=== PATIENT | female | born 1990 | race Caucasian/White ===

== ENCOUNTER 2016-11-04 15:09 | Emergency (ER) | payer SELFPAY ==
[2016-11-04 15:15] VITALS: BP 138/86
--- NOTE | 2016-11-04 15:20 | ER Document Report ---
ED Medical Screen (RME) - General Stated Complaint: SHORTNESS OF BREATH Notes: Patient complains of shortness of breath for a couple of days. Patient has a history of asthma, but denies cough or cold symptoms. Patient complains of intermittent swelling to feet, also complains of feeling bloated. Patient denies fever, nausea, vomiting or diarrhea. Patient denies any other medical history. I have greeted and performed a rapid initial assessment of this patient. A comprehensive ED assessment and evaluation of the patient, analysis of test results and completion of the medical decision making process will be conducted by additional ED providers. TRAVEL OUTSIDE OF THE [place] IN LAST 30 DAYS: No - Related Data Allergies/Adverse Reactions: Penicillins Allergy (Verified 11/04/16 15:16) unknown Past Medical History Pulmonary Medical History: Reports: Hx Asthma - as a child Past Surgical History: Reports: Hx Tonsillectomy - Immunizations Immunizations up to date: Yes Hx Diphtheria, Pertussis, Tetanus Vaccination: Yes Physical Exam - Vital signs Vitals: Temp Pulse Resp BP Pulse Ox 98.5 F 97 16 138/86 H 97 11/04/16 15:15 11/04/16 15:15 11/04/16 15:15 11/04/16 15:15 11/04/16 15:15 - Respiratory Respiratory status: No respiratory distress Breath sounds: Normal Course - Vital Signs Vital signs: Temp Pulse Resp BP Pulse Ox 98.5 F 97 16 138/86 H 97 11/04/16 15:15 11/04/16 15:15 11/04/16 15:15 11/04/16 15:15 11/04/16 15:15
--- NOTE | 2016-11-04 17:01 | ER Document Report ---
ED General - General Chief Complaint: Shortness Of Breath Stated Complaint: SHORTNESS OF BREATH TRAVEL OUTSIDE OF THE [place] IN LAST 30 DAYS: No - HPI Patient complains to provider of: shortness of breath leg swelling Notes: Patient coming in for evaluation shortness of breath and leg swelling. Patient denies any recent travel denies any chest pain states dyspnea occurred day prior to arrival states she has been over 10 pounds over the last week. Patient states she is on her feet a lot during the day. Patient denies any fevers chills nausea vomiting cough - Related Data Allergies/Adverse Reactions: Penicillins Allergy (Verified 11/04/16 15:16) unknown Past Medical History - Social History Smoking Status: Current Every Day Smoker Chew tobacco use (# tins/day): No Frequency of alcohol use: None Drug Abuse: None Family History: Arthritis, CAD, DM, Hyperlipidemia, Hypertension, Malignancy Patient has suicidal ideation: No Patient has homicidal ideation: No Pulmonary Medical History: Reports: Hx Asthma - as a child Renal/ Medical History: Denies: Hx Peritoneal Dialysis Past Surgical History: Reports: Hx Tonsillectomy - Immunizations Immunizations up to date: Yes Hx Diphtheria, Pertussis, Tetanus Vaccination: Yes Review of Systems - Review of Systems Constitutional: No symptoms reported EENT: No symptoms reported Cardiovascular: No symptoms reported Respiratory: Cough, Short of breath Gastrointestinal: No symptoms reported Genitourinary: No symptoms reported Female Genitourinary: No symptoms reported Musculoskeletal: No symptoms reported Skin: No symptoms reported Hematologic/Lymphatic: No symptoms reported Neurological/Psychological: No symptoms reported -: Yes All other systems reviewed and negative Physical Exam - Vital signs Vitals: Temp Pulse Resp BP Pulse Ox 98.5 F 97 16 138/86 H 97 11/04/16 15:15 11/04/16 15:15 11/04/16 15:15 11/04/16 15:15 11/04/16 15:15 Interpretation: Normal - General General appearance: Appears well, Alert - HEENT Head: Normocephalic, Atraumatic Eyes: Normal Pupils: PERRL - Respiratory Respiratory status: No respiratory distress Chest status: Nontender Breath sounds: Normal Chest palpation: Normal - Cardiovascular Rhythm: Regular Heart sounds: Normal auscultation Murmur: No - Abdominal Inspection: Normal, Obese Distension: No distension Bowel sounds: Normal Tenderness: Nontender Organomegaly: No organomegaly - Back Back: Normal, Nontender - Extremities General upper extremity: Normal inspection, Nontender, Normal color, Normal ROM , Normal temperature General lower extremity: Normal inspection, Nontender, Edema - Trace bilateral, Normal color, Normal ROM, Normal temperature, Normal weight bearing. No: Germania' s sign - Neurological Neuro grossly intact: Yes Cognition: Normal Orientation: AAOx4 [place] Coma Scale Eye Opening: Spontaneous [place] Coma Scale Verbal: Oriented [place] Coma Scale Motor: Obeys Commands [place] Coma Scale Total: 15 Speech: Normal Motor strength normal: LUE, RUE, LLE, RLE Sensory: Normal - Psychological Associated symptoms: Normal affect, Normal mood - Skin Skin Temperature: Warm Skin Moisture: Dry Skin Color: Normal Course - Re-evaluation Re-evalutation: 11/04/16 18:06 Chest x-ray and physical examination revealed no critical etiology. Patient with trace edema in bilateral lower extremities more likely from stiffening of all day will give the patient a information for support hoses. Patient was encouraged follow-up with her condition medical clinic more likely patient's dyspnea is could be pickwickian however this time is no signs of any infection or other serious etiology - Vital Signs Vital signs: Temp Pulse Resp BP Pulse Ox 98.5 F 97 16 138/86 H 97 11/04/16 15:15 11/04/16 15:15 11/04/16 15:15 11/04/16 15:15 11/04/16 15:15 Discharge - Discharge Clinical Impression: Peripheral edema Dyspnea Qualifiers: Dyspnea type: unspecified Qualified Code(s): R06.00 - Dyspnea, unspecified Condition: Good Disposition: HOME, SELF-CARE Instructions: Dyspnea, Nonspecific ([facility]), Edema, Peripheral ([facility]) Additional Instructions: Your physical exam today does reveal some slight swelling of the lower extremities. More likely this is from ordered being pulled down into the legs while standing on all day. I will prescribe you tightfitting stockings that will help post water back up out of the legs. You may also elevate her legs at nighttime. I would recommend also following up with the listed clinic for further evaluation a recent weight gain. More likely this is also why you're having some shortness of breath. Please avoid smoking any by the does smoke. Return to ER symptoms worsen. Prescriptions: Compression Socks, Medium [Futuro Restoring] 1 each [facility] DAILY #1 each Forms: Return to Work
== END 2016-11-04 17:32 | disposition home or self-care (01) ==
LOC: ER 15:09
DX: R06.02 Shortness of breath (principal); R60.0 Localized edema; R05 Cough; F17.200 Nicotine dependence, unspecified, uncomplicated
CPT/HCPCS: 71020; 99284

== ENCOUNTER 2016-11-18 22:18 | Emergency (ER) | payer SELFPAY ==
[2016-11-18] MEDS ORDERED: ACETAMINOPHEN 325 MG TABLET PO ONE (22:48)
[2016-11-18] MEDS ORDERED: ACETAMINOPHEN 325 MG TABLET ONE (22:49)
[2016-11-18] MEDS ORDERED: NORMAL SALINE 1000 ML 1,000 ML IV ONE (23:36)
[2016-11-18] MEDS ORDERED: KETOROLAC TROMETHAMINE INJ/PF 30 MG/1 ML SDV IV ONE (23:36)
--- NOTE | 2016-11-19 00:31 | ER Document Report ---
ED General - General Chief Complaint: Fever Stated Complaint: HIGH FEVER/DIFFICULTY BREATHING Notes: Patient is a 26-year-old female with past history of morbid obesity but no additional medical history who presents with fever, cough, shortness of breath that has been ongoing for the past 1 week. States symptoms have been unchanged since onset. Uncertain if she has had any sick contacts. She has not had any vomiting or diarrhea but states that she has not had an appetite. She was seen in the emergency department 2 weeks ago for complaints of shortness of breath and had a normal chest x-ray at that time. She has not seen in her primary care doctor for these concerns. Nothing improves or worsens her symptoms. TRAVEL OUTSIDE OF THE [place] IN LAST 30 DAYS: No - Related Data Allergies/Adverse Reactions: Penicillins Allergy (Verified 11/04/16 15:16) unknown Past Medical History - General Information source: Patient - Social History Smoking Status: Never Smoker Frequency of alcohol use: None Drug Abuse: None Lives with: Family Family History: Arthritis, CAD, DM, Hyperlipidemia, Hypertension, Malignancy Patient has suicidal ideation: No Patient has homicidal ideation: No Pulmonary Medical History: Reports: Hx Asthma - as a child Renal/ Medical History: Denies: Hx Peritoneal Dialysis Past Surgical History: Reports: Hx Tonsillectomy - Immunizations Immunizations up to date: Yes Hx Diphtheria, Pertussis, Tetanus Vaccination: Yes Review of Systems - Review of Systems Notes: Constitutional: Positive for fever. HENT: Negative for sore throat. Eyes: Negative for visual changes. Cardiovascular: Negative for chest pain. Respiratory: Positive for shortness of breath and cough Gastrointestinal: Negative for abdominal pain, vomiting or diarrhea. Genitourinary: Negative for dysuria. Musculoskeletal: Negative for back pain. Skin: Negative for rash. Neurological: Negative for headaches, weakness or numbness. 10 point ROS negative except as marked above and in HPI. Physical Exam - Vital signs Vitals: Temp Pulse Resp BP Pulse Ox 103.1 F H 111 H 24 H 138/83 H 96 11/18/16 22:44 11/18/16 22:44 11/18/16 22:44 11/18/16 22:44 11/18/16 22:44 Interpretation: Tachycardic, Tachypneic, Febrile Notes: PHYSICAL EXAMINATION: GENERAL: Morbidly obese female. Well-appearing, well-nourished and in no acute distress. HEAD: Atraumatic, normocephalic. EYES: Pupils equal round and reactive to light, extraocular movements intact, sclera anicteric, conjunctiva are normal. ENT: nares patent, oropharynx clear without exudates. Dry mucous membranes. NECK: Normal range of motion, supple without lymphadenopathy LUNGS: Lung exam limited secondary to morbid obesity. Breath sounds clear to auscultation bilaterally and equal. No wheezes rales or rhonchi. HEART: Regular tachycardia without murmurs ABDOMEN: Morbidly obese abdomen. Soft, nontender, normoactive bowel sounds. No guarding, no rebound. No masses appreciated. EXTREMITIES: Normal range of motion, no pitting or edema. No cyanosis. NEUROLOGICAL: No focal neurological deficits. Moves all extremities spontaneously and on command. PSYCH: Normal mood, normal affect. SKIN: Warm, Dry, normal turgor, no rashes or lesions noted. Course - Re-evaluation Re-evalutation: 11/19/16 00:25 Patient presents with ongoing fever, cough and shortness of breath. Patient is morbidly obese 376 pounds with a BMI of 62 and a suspect large component of her difficulty breathing is secondary to her morbid obesity with superimposed likely upper respiratory infection versus influenza. Repeat chest x-ray today again does not demonstrate any acute infiltrate an overall have a low clinical suspicion for an acute pneumonia. Exam is overall unremarkable with the exception of mild tachycardia. Will obtain basic metabolic panel as patient states she has had difficulty tolerating significant by mouth intake to ensure that she has not developed acute kidney injury. Will also obtain flu testing. 11/19/16 01:46 Laboratories unremarkable as is influenza testing. Chest x-ray remains unremarkable. However, given patient's fever at time of arrival will clinically treat as a possible community-acquired pneumonia and start her on levofloxacin. Vitals have normalized. At this time will discharge with return precautions and follow-up recommendations. Verbal discharge instructions given a the bedside and opportunity for questions given. Medication warnings reviewed. Patient is in agreement with this plan and has verbalized understanding of return precautions and the need for primary care follow-up in the next 24-72 hours. - Vital Signs Vital signs: Temp Pulse Resp BP Pulse Ox 98.5 F 106 H 24 H 115/69 97 11/19/16 02:15 11/19/16 02:15 11/18/16 22:44 11/19/16 02:15 11/19/16 02:15 - Laboratory Result Diagrams: 11/19/16 00:45 Laboratory results interpreted by me: 11/19/16 00:45 Glucose 111 H - Diagnostic Test Radiology reviewed: Image reviewed, Reports reviewed Radiology results interpreted by me: 11/19/16 00:26 Chest x-ray: No acute infiltrate Discharge - Discharge Clinical Impression: Community acquired pneumonia Condition: Good Disposition: HOME, SELF-CARE Additional Instructions: You have been diagnosed with a pneumonia. It is very important that you take all of your antibiotics until they are gone even if you are feeling better. Please return to the emergency department immediately if you began having worsening shortness of breath, become confused, have worsening pain, pass out, have persistent vomiting that prevents you from being able to drink fluids for more than 12 hours, or have any other symptoms that are worrisome to you. Please follow-up with your primary care doctor in the next 1-2 days. Prescriptions: Doxycycline Hyclate 100 mg PO BID #14 capsule
[2016-11-19 01:22] LABS: ANION GAP 12 (5-19); BLOOD UREA NITROGEN 15 mg/dL (7-20); CALCIUM 9.3 mg/dL (8.4-10.2); CARBON DIOXIDE 25 mmol/L (22-30); CHLORIDE 104 mmol/L (98-107); GLUCOSE 111 mg/dL (75-110)
[2016-11-19 02:19] VITALS: BP 115/69
[2016-11-19] MEDS ORDERED: DOXYCYCLINE HYCLATE 100 MG TABLET PO ONE (02:45)
== END 2016-11-19 03:04 | disposition home or self-care (01) ==
LOC: ER 22:18
DX: J18.9 Pneumonia, unspecified organism (principal); R50.9 Fever, unspecified; R06.00 Dyspnea, unspecified; E66.01 Morbid (severe) obesity due to excess calories; Z68.44 Body mass index [BMI] 60.0-69.9, adult; Z88.0 Allergy status to penicillin
CPT/HCPCS: 99284; 96361; 96374; 36415; 80048; 87804; 71010; J1885; J7030

== ENCOUNTER 2016-12-21 08:09 | Emergency (ER) | payer SELFPAY ==
[2016-12-21] MEDS ORDERED: HYDROMORPHONE HCL INJ/PF 2 MG/ML AMPULE ONE ×2 (11:16→11:17)
[2016-12-21] MEDS ORDERED: ONDANSETRON 4 MG TAB.RAPDIS ONE ×2 (11:16)
[2016-12-21] MEDS ORDERED: KETOROLAC TROMETHAMINE INJ/PF 30 MG/1 ML SDV ONE ×2 (11:16→11:17)
[2016-12-22 10:14] LABS: ABSOLUTE EOSINOPHILS # (AUTO) 0.2 10^3/uL (0.0-0.6); ABSOLUTE LYMPHOCYTES (AUTO) 2.2 10^3/uL (0.5-4.7); ABSOLUTE MONOCYTES (AUTO) 0.6 10^3/uL (0.1-1.4); ABSOLUTE NEUT (AUTO) 9.8 10^3/uL (1.7-8.2); BASOPHILS % (AUTO) 0.4 % (0-2); EOSINOPHILS % (AUTO) 1.7 % (0-6); HEMATOCRIT 43.8 % (36.0-47.0); HEMOGLOBIN 14.3 g/dL (12.0-15.5); HGB HCT DIFFERENCE -0.9; LYMPHOCYTES % (AUTO) 17.2 % (13-45); MEAN CORPUSCULAR HEMOGLOBIN 27.6 pg (27.0-33.4); MEAN CORPUSCULAR HGB CONC 32.6 g/dL (32.0-36.0); MEAN CORPUSCULAR VOLUME 85 fl (80-97); MONOCYTES % (AUTO) 4.9 % (3-13); RED BLOOD COUNT 5.17 10^6/uL (3.72-5.28); RED CELL DISTRIBUTION WIDTH 13.1 % (11.5-14.0); SEGMENTED NEUTROPHILS % (AUTO) 75.8 % (42-78); WHITE BLOOD COUNT 12.9 10^3/uL (4.0-10.5)
[2016-12-22 17:54] LABS: BLOOD UREA NITROGEN 18 mg/dL (7-20); CALCIUM 9.5 mg/dL (8.4-10.2); CREATININE RESULT 0.66 mg/dL (0.52-1.25); GLUCOSE 107 mg/dL (75-110)
[2016-12-22 17:55] LABS: ALANINE AMINOTRANSFERASE 30 U/L (9-52); ALBUMIN 4.2 g/dL (3.5-5.0); ALKALINE PHOSPHATASE 81 U/L (38-126); ANION GAP 12 (5-19); ASPARTATE AMINO TRANSFERASE 25 U/L (14-36); BILIRUBIN,TOTAL 0.8 mg/dL (0.2-1.3); CARBON DIOXIDE 26 mmol/L (22-30); CHLORIDE 105 mmol/L (98-107); POTASSIUM 4.1 mmol/L (3.6-5.0); SODIUM 143.2 mmol/L (137-145)
[2016-12-22 17:56] LABS: BILIRUBIN,DIRECT 0.3 mg/dL (0.0-0.4)
[2016-12-22 17:57] LABS: LIPASE 93.8 U/L (23-300); TOTAL PROTEIN 7.7 g/dL (6.3-8.2)
== END 2016-12-21 13:25 | disposition home or self-care (01) ==
LOC: ER 08:09
DX: K80.80 Other cholelithiasis without obstruction (principal); R10.13 Epigastric pain; R10.11 Right upper quadrant pain; R11.0 Nausea
CPT/HCPCS: 99284; 96372; 36415; 84702; 83690; 85025; 80053; 76705; S0119; J1885; J1170

== ENCOUNTER 2017-03-03 16:07 | Emergency (ER) | payer SELFPAY ==
[2017-03-03 16:11] VITALS: BP 152/77
--- NOTE | 2017-03-03 17:00 | ER Document Report ---
HPI - HPI Patient complains to provider of: right ear pain and drainage Onset: Last week Onset/Duration: Worse Pain Level: 4 Context: 26-year-old morbidly obese female complaining of pain to her right ear canal she has had swimmer's ear in the past. It restarted several days ago and now is draining. Fever to 101 last night. No vomiting. No headache, no recent URI. Denies , negative home test this week. Associated Symptoms: None Exacerbated by: Movement Relieved by: Denies Similar symptoms previously: Yes Recently seen / treated by doctor: No - ROS ROS below otherwise negative: Yes Systems Reviewed and Negative: Yes All other systems reviewed and negative - REPRODUCTIVE Reproductive: REPORTS: : - DERM Skin Color: Normal Past Medical History - General Information source: Patient - Social History Smoking Status: Never Smoker Frequency of alcohol use: None Drug Abuse: None Lives with: Family Family History: Arthritis, CAD, DM, Hyperlipidemia, Hypertension, Malignancy Pulmonary Medical History: Reports: Hx Asthma - as a child Renal/ Medical History: Denies: Hx Peritoneal Dialysis Past Surgical History: Reports: Hx Tonsillectomy - Immunizations Immunizations up to date: Yes Hx Diphtheria, Pertussis, Tetanus Vaccination: Yes Vertical Provider Document - CONSTITUTIONAL Agree With Documented VS: Yes Exam Limitations: No Limitations - INFECTION CONTROL TRAVEL OUTSIDE OF THE [place] IN LAST 30 DAYS: No - HEENT HEENT: Normocephalic, PERRLA Notes: right ear canal almost completely occluded. We have no jesse, will use small 1/ 4 packing gauze to get the drops past the swelling and start on oral cipro because of the amount of swelling. No protrusion of the external ear. - NECK Neck: Supple. negative: Lymphadenopathy-Left, Lymphadenopathy-Right - RESPIRATORY Respiratory: Breath Sounds Normal, No Respiratory Distress O2 Sat by Pulse Oximetry: 97 - CARDIOVASCULAR Cardiovascular: Regular Rate, Regular Rhythm - MUSCULOSKELETAL/EXTREMETIES Musculoskeletal/Extremeties: MAEW - NEURO Level of Consciousness: Awake, Alert, Appropriate - DERM Integumentary: Warm, Dry, No Rash Course - Vital Signs Vital signs: Temp Pulse Resp BP Pulse Ox 98.4 F 83 18 152/77 H 97 03/03/17 16:09 03/03/17 16:09 03/03/17 16:09 03/03/17 16:09 03/03/17 16:09 Discharge - Discharge Clinical Impression: severe right otitis externa, swollen ear canal Condition: Good Disposition: HOME, SELF-CARE Instructions: ENT, Otitis Externa ([facility]), Ciprofloxacin ([facility]), Steroid Medication Additional Instructions: warm compress motrin tylenol 4 drops right ear canal twice a day of the Ciprodex to er if worse see ENT doctor if persists Please complete the patient satisfaction survey if you get one, and return it.. If you do not receive a survey, then you can go to the [facility] website, [email or web address] and place your comments about your very good care. Thank you very much. It was a pleasure being your medical provider today. Prescriptions: Ibuprofen [Motrin 800 mg Tablet] 800 mg PO Q8HP PRN #30 tablet PRN Reason: Ciprofloxacin HCl [Cipro 500 mg Tablet] 500 mg PO BID #14 tablet Forms: Return to Work
[2017-03-03] MEDS ORDERED: CIPROFLOXACIN HCL/DEXAMETH OTIC DROP 7.5 ML AD ONE (17:07)
[2017-03-03] MEDS ORDERED: ACETAMINOPHEN 325 MG TABLET PO ONE (17:41)
[2017-03-03] MEDS ORDERED: IBUPROFEN 800 MG TABLET PO ONE (17:41)
[2017-03-03] MEDS ORDERED: CIPROFLOXACIN HCL 500 MG TABLET PO ONE (17:43)
== END 2017-03-03 18:54 | disposition home or self-care (01) ==
LOC: ER 16:07
DX: H60.91 Unspecified otitis externa, right ear (principal); H92.01 Otalgia, right ear
CPT/HCPCS: 99282; J3490

== ENCOUNTER 2020-04-21 09:33 | Emergency (ER) | payer SELFPAY ==
[2020-04-21 09:55] VITALS: BP 150/89
--- NOTE | 2020-04-21 10:55 | ER Document Report ---
HPI - HPI Time Seen by Provider: 04/21/20 10:44 Pain Level: 4 Notes: 29-year-old female presents to the emergency room for complaints of right upper back pain after she was cleaning yesterday. States she woke up this morning with pain proximately 3 out of 5. She states she took 200 mg of ibuprofen at 7 AM without relief. Denies any trauma. 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 Pain is worse with movement, better at rest. Denies any previous injury to her shoulder states her last menstrual cycle was 3 weeks ago. Denies fevers, chills, chest pain,palpitations, shortness of breath, dyspnea, nausea, vomiting, diarrhea, abdominal pain, hematuria,blurred vision, double vision, loss of vision, speech changes, LH, dizziness, syncope, headaches, wheezing, ST, URI, neck pain, weakness, bowel or bladder dysfunction, saddle anesthesia, numbness or tingling in bilateral upper or lower extremities equally, muscle paralysis, weakness in bilateral upper or lower extremities equally or rash. Denies IV drug use. MEDICATIONS: I agree with the patient medications as charted by the RN. ALLERGIES: I agree with the allergies as charted by the RN. PAST MEDICAL HISTORY/PAST SURGICAL HISTORY: Reviewed and agree as charted by RN. SOCIAL HISTORY: Reviewed and agree as charted by RN. FAMILY HISTORY: No significant familial comorbid conditions directly related to patient complaint EXAM: Reviewed vital signs as charted by RN. PHYSICAL EXAMINATION: reviewed vital signs by RN GENERAL: Well-appearing, well-nourished and in no acute distress. HEAD: Atraumatic, normocephalic. EYES: Pupils equal round and reactive to light, extraocular movements intact, conjunctiva are normal. ENT: Nares patent, oropharynx clear without exudates. Moist mucous membranes. NECK: Normal range of motion, supple without lymphadenopathy LUNGS: Breath sounds clear to auscultation bilaterally and equal. No wheezes rales or rhonchi. HEART: Regular rate and rhythm without murmurs ABDOMEN: Soft, nontender, nondistended abdomen. No guarding, no rebound. No masses appreciated. Female : deferred Musculoskeletal: Normal range of motion, no pitting or edema. No cyanosis. Tenderness to right thoracic paraspinal NEUROLOGICAL: Cranial nerves grossly intact. Normal speech, normal gait. Normal sensory, motor exams PSYCH: Normal mood, normal affect. SKIN: Warm, Dry, normal turgor, no rashes or lesions noted. - REPRODUCTIVE Reproductive: DENIES: : Past Medical History - General Information source: Patient - Social History Smoking Status: Never Smoker Chew tobacco use (# tins/day): No Frequency of alcohol use: None Drug Abuse: None Family History: Arthritis, CAD, DM, Hyperlipidemia, Hypertension, Malignancy Patient has homicidal ideation: No Pulmonary Medical History: Reports: Hx Asthma - as a child Renal/ Medical History: Denies: Hx Peritoneal Dialysis Past Surgical History: Reports: Hx Cholecystectomy, Hx Tonsillectomy - Immunizations Immunizations up to date: Yes Hx Diphtheria, Pertussis, Tetanus Vaccination: Yes Vertical Provider Document - CONSTITUTIONAL Agree With Documented VS: Yes Exam Limitations: No Limitations General Appearance: WD/WN - INFECTION CONTROL TRAVEL OUTSIDE OF THE [place] IN LAST 30 DAYS: No Course - Re-evaluation Re-evalutation: 04/21/20 11:13 Afebrile vitals stable no distress. Nurses notes reviewed. Patient has palpable reproducible tenderness to her right paraspinal thoracic spine. Advised to take muscle relaxers and anti-inflammatories as directed, do not drive, drink or operate heavy machinery while taking medication because sedation or impairment of cognitive function. Advised apply heat 20 minutes on 20 minutes off several times a day. Ice to follow-up with primary care provider symptoms are persistent. I did not feel the need for any imaging today as patient does have reproducible pain and there was no trauma to her back. work note has been given. After performing a Medical Screening Examination, I estimate there is LOW risk for EXPANDING OR RUPTURED ABDOMINAL AORTIC ANEURYSM, CAUDA EQUINA SYNDROME, EPIDURAL MASS ABSCESS OR LESION(S), OSTEOMYELITIS,PERSONAL HISTORY OF CANCER, IMMUNOSUPPERSSSION, HISTORY OF IV DRUG USE, FRACTURE, CORD COMPERSSION, CANCER, RETROPERITONEAL BLEED, SPINAL EPIDURAL HEMATOMA, or HERNIATED DISK CAUSING SEVERE SPINAL STENOSIS, thus I consider the discharge disposition reasonable. I have reevaluated this patient multiple times and no significant life threatening changes are noted. The patient and I have discussed the diagnosis and risks, and we agree with discharging home and close follow-up. We also discussed returning to the Emergency Department immediately if new or worsening symptoms occur with the understanding that symptoms and presentations can change. We have discussed the symptoms which are most concerning (e.g., saddle anesthesia, urinary or bowel incontinence or retention, changing or worsening pain) that necessitate immediate return. - Vital Signs Vital signs: Temp Pulse Resp BP Pulse Ox 97.9 F 73 16 150/89 H 98 04/21/20 09:54 04/21/20 09:54 04/21/20 09:54 04/21/20 09:54 04/21/20 09:54 Discharge - Discharge Clinical Impression: Strain of right trapezius muscle Condition: Stable Disposition: HOME, SELF-CARE Instructions: Muscle Strain ([facility]), Warm Packs ([facility]) Additional Instructions: Please do not drive, drink or operate machinery while taking medication because sedation or impairment of cognitive function. Take naproxen with food. Do not take any ibuprofen while you are taking naproxen. Heat is the best thing for you as it will help reduce the inflammation. You have been given a work note. If any symptoms become worse such as worsening pain, numbness or tingling, fever chills, chest pain shortness of breath return to the emergency room *You have been evaluated for back pain *Take medication as prescribed *Rest/Ice- heat as directed *Follow up with a primary care provider *Return to ED for worsening condition, changes, needs Prescriptions: Naproxen 500 mg PO BID #10 tablet Methocarbamol [Robaxin 500 mg Tablet] 500 mg PO QID PRN #15 tablet PRN Reason: Forms: Return to Work Referrals: GREGORY RUBALCAVA MD [ACTIVE STAFF] - Follow up as needed
== END 2020-04-21 11:25 | disposition home or self-care (01) ==
LOC: ER 09:33
DX: S29.012A Strain of muscle and tendon of back wall of thorax, initial encounter (principal); X58.XXXA Exposure to other specified factors, initial encounter; Y93.E9 Activity, other interior property and clothing maintenance; Z90.49 Acquired absence of other specified parts of digestive tract
CPT/HCPCS: 99283

== ENCOUNTER 2020-06-30 15:49 | Emergency (ER) | payer SELFPAY ==
[2020-06-30] MEDS ORDERED: KETOROLAC TROMETHAMINE INJ/PF 30 MG/1 ML SDV IV ONE (17:21)
--- NOTE | 2020-06-30 17:24 | ER Document Report ---
ED Medical Screen (RME) - General Chief Complaint: Upper Abdominal Pain Stated Complaint: ABDOMINAL PAIN Time Seen by Provider: 06/30/20 17:11 Mode of Arrival: Ambulatory Information source: Patient Notes: Patient is a two 9-year-old female comes emergency room complaining of right- sided abdominal pain and right-sided flank pain. Patient [place] the beach [place] in [place] early evening and she started having pain on her right upper quadrant area radiating to her back. Patient is already had a cholecystectomy performed. She states that is made her nauseous and the only t zion she finds relief is in a positional type of a situation. When she is laying down quiet it does not hurt as near as soon when she is sitting up or walking. She denies any dysuria. Patient also states she is sexually active but does not believe she is . She has had nausea without vomiting. She has had no dysuria. She denies any other medical problems. Patient does admit to smoking. Physical examination: Patient is a well-nourished well-developed morbidly obese 417 pound female. She is in no apparent distress on examination but does appear somewhat uncomfortable. Cardiac: Regular rate and rhythm no murmurs auscultated. Lungs: Bilateral breath sounds decreased throughout no rhonchi rales or wheeze heard question decreased secondary to body habitus. Abdomen: In a sitting position bowel sounds are present there is mild what appears to be right upper quad or lateral abdominal tenderness. Does not appear to be periumbilical at this time. And there is reproducible right-sided flank pain to percussion. I contacted CT her machine will hold up to 500 pounds so we will go ahead and do a CT of the patient. I have also informed patient that if she is we may have to go and do an ultrasound to rule out an ectopic. Patient states even though she is sexually active she she knows she is not . I have greeted and performed a rapid initial assessment of this patient. A comprehensive ED assessment and evaluation of the patient, analysis of test results and completion of the medical decision making process will be conducted by additional ED providers. Dictation of this chart was performed using voice recognition software; therefore, there may be some unintended grammatical errors. TRAVEL OUTSIDE OF THE [place] IN LAST 30 DAYS: No - Related Data Allergies/Adverse Reactions: Penicillins Allergy (Verified 06/30/20 17:07) unknown Past Medical History - Social History Chew tobacco use (# tins/day): No Frequency of alcohol use: None Drug Abuse: None Pulmonary Medical History: Reports: Hx Asthma - as a child Renal/ Medical History: Denies: Hx Peritoneal Dialysis Past Surgical History: Reports: Hx Cholecystectomy, Hx Tonsillectomy - Immunizations Immunizations up to date: Yes Hx Diphtheria, Pertussis, Tetanus Vaccination: Yes Physical Exam - Vital signs Vitals: Temp Pulse Resp BP Pulse Ox 98.0 F 91 22 H 137/83 H 97 06/30/20 16:07 06/30/20 16:07 06/30/20 16:07 06/30/20 16:07 06/30/20 16:07 Course - Vital Signs Vital signs: Temp Pulse Resp BP Pulse Ox 98.0 F 91 22 H 137/83 H 97 06/30/20 16:07 06/30/20 16:07 06/30/20 16:07 06/30/20 16:07 06/30/20 16:07
[2020-06-30 17:47] LABS: ABSOLUTE BASOPHILS # (AUTO) 0.1 10^3/uL (0.0-0.2); ABSOLUTE EOSINOPHILS # (AUTO) 0.5 10^3/uL (0.0-0.6); ABSOLUTE LYMPHOCYTES (AUTO) 2.9 10^3/uL (0.5-4.7); ABSOLUTE MONOCYTES (AUTO) 0.8 10^3/uL (0.1-1.4); ABSOLUTE NEUT (AUTO) 7.8 10^3/uL (1.7-8.2); BASOPHILS % (AUTO) 0.6 % (0-2); HEMATOCRIT 42.3 % (36.0-47.0); LYMPHOCYTES % (AUTO) 24.4 % (13-45); MEAN CORPUSCULAR HEMOGLOBIN 27.8 pg (27.0-33.4); MEAN CORPUSCULAR HGB CONC 33.1 g/dL (32.0-36.0); MEAN CORPUSCULAR VOLUME 84 fl (80-97); MONOCYTES % (AUTO) 6.4 % (3-13); PLATELET COUNT 340 10^3/uL (150-450); RED BLOOD COUNT 5.05 10^6/uL (3.72-5.28); RED CELL DISTRIBUTION WIDTH 13.5 % (11.5-14.0); SEGMENTED NEUTROPHILS % (AUTO) 64.6 % (42-78); TOTAL CELLS COUNTED % (AUTO) 100 %
[2020-06-30 17:53] LABS: APPEARANCE,URINE SLIGHTLY-CLOUDY; BILIRUBIN,URINE NEGATIVE (NEGATIVE); COLOR,URINE YELLOW; GLUCOSE, URINE NEGATIVE (NEGATIVE); KETONES,URINE NEGATIVE (NEGATIVE); LEUKOCYTE ESTERASE,URINE TRACE (NEGATIVE); NITRITE,URINE NEGATIVE (NEGATIVE); PROTEIN,URINE NEGATIVE (NEGATIVE); URINE SPECIFIC GRAVITY 1.028; UROBILINOGEN,URINE NEGATIVE mg/dL (<2.0)
[2020-06-30 18:01] LABS: ALBUMIN 4.2 g/dL (3.5-5.0); ALKALINE PHOSPHATASE 82 U/L (38-126); ANION GAP 6 (5-19); ASPARTATE AMINO TRANSFERASE 22 U/L (14-36); BILIRUBIN,TOTAL 0.6 mg/dL (0.2-1.3); BLOOD UREA NITROGEN 17 mg/dL (7-20); CALCIUM 9.7 mg/dL (8.4-10.2); CARBON DIOXIDE 32 mmol/L (22-30); CHLORIDE 102 mmol/L (98-107); GLUCOSE 91 mg/dL (75-110); POTASSIUM 4.1 mmol/L (3.6-5.0); TOTAL PROTEIN 7.5 g/dL (6.3-8.2)
--- NOTE | 2020-06-30 18:27 | RADIOLOGY REPORT (SQ) ---
EXAM DESCRIPTION: CT ABD/PELVIS NO ORAL OR IV IMAGES COMPLETED DATE/TIME: 06/30/2020 6:00 pm REASON FOR STUDY: Right flank pain COMPARISON: None. TECHNIQUE: CT scan of the abdomen and pelvis performed without intravenous or oral contrast. Images reviewed with lung, soft tissue, and bone windows. Reconstructed coronal and sagittal MPR images revi ewed. All images stored on PACS. All CT scanners at this facility use dose modulation, iterative reconstruction, and/or weight based d osing when appropriate to reduce radiation dose to as low as reasonably achievable (ALARA). [facility]: Dose Right [facility]: CareDose [facility]: Dose Right [facility]: Teradose 4D [facility]: Smart 10seconds Software RADIATION DOSE: CT Rad equipment meets quality standard of care and radiation dose reduction techniq ues were employed. CTDIvol: 27.2 mGy. DLP: 1674 mGy-cm.mGy. LIMITATIONS: None. FINDINGS: LOWER CHEST: No significant findings. No nodules or infiltrates. NON-CONTRASTED LIVER, SPLEEN, ADRENALS: Evaluation limited by lack of IV contrast. No identified sign ificant masses. PANCREAS: No masses. No peripancreatic inflammatory changes. GALLBLADDER: Surgically absent. RIGHT KIDNEY AND URETER: No suspicious masses. Assessment limited by lack of IV contrast. No signif icant calcifications. No hydronephrosis or hydroureter. LEFT KIDNEY AND URETER: No suspicious masses. Assessment limited by lack of IV contrast. No signifi cant calcifications. No hydronephrosis or hydroureter. AORTA AND RETROPERITONEUM: No aneurysm. No retroperitoneal masses or adenopathy. BOWEL AND PERITONEAL CAVITY: No obvious masses or inflammatory changes. No free fluid. APPENDIX: Normal. PELVIS, BLADDER, AND ABDOMINAL WALL:No abnormal masses. No free fluid. Bladder normal. The uterus an d adnexa appear normal for modality. BONES: No significant findings. OTHER: No other significant finding. IMPRESSION: NO SIGNIFICANT OR ACUTE PROCESS IN THE ABDOMEN OR PELVIS. COMMENT: Quality ID # [id number]: Final reports with documentation of one or more dose reduction techniques (e.g., Automated exposure control, adjustment of the mA and/or kV according to patient size, use of iterative reconstruction technique) TECHNICAL DOCUMENTATION: JOB ID: [id number] 2010 [employer]- All Rights Reserved Reading location - IP/workstation name: [email or web address]
[2020-06-30] MEDS ORDERED: NORMAL SALINE 1000 ML 1,000 ML IV ONE (20:39)
[2020-06-30] MEDS ORDERED: ONDANSETRON HCL INJ/PF 4 MG/2 ML SDV IV ONE (20:40)
--- NOTE | 2020-06-30 21:00 | ER Document Report ---
ED General - General Chief Complaint: Upper Abdominal Pain Stated Complaint: ABDOMINAL PAIN Time Seen by Provider: 06/30/20 17:11 Mode of Arrival: Ambulatory Information source: Patient TRAVEL OUTSIDE OF THE [place] IN LAST 30 DAYS: No - HPI Patient complains to provider of: right sided abd pain Onset: Yesterday Onset/Duration: Sudden Quality of pain: Sharp Severity: Mild Pain Level: 3 Context: Patient presents to the ER for evaluation of right upper abdominal pain radiating to the right flank began suddenly while she was swimming in a pool yesterday afternoon. She admits to associated nausea but denies vomiting. She denies diarrhea. She denies change in appetite. Patient states pain is made worse with movement. She denies fever. She denies cough or congestion. Nursing notes reviewed and past medical, social, and family histories reviewed and validated. Associated symptoms: Nausea Exacerbated by: Movement, Walking Relieved by: Denies Similar symptoms previously: No Recently seen / treated by doctor: No - Related Data Allergies/Adverse Reactions: Penicillins Allergy (Verified 06/30/20 17:07) unknown Past Medical History - General Information source: Patient - Social History Smoking Status: Current Some Day Smoker Chew tobacco use (# tins/day): No Smoking Education Provided: Yes Frequency of alcohol use: None Drug Abuse: None Lives with: Family Family History: Arthritis, CAD, DM, Hyperlipidemia, Hypertension, Malignancy Patient has suicidal ideation: No Patient has homicidal ideation: No - Past Medical History Cardiac Medical History: Reports: Hx Hypertension Pulmonary Medical History: Reports: Hx Asthma - as a child Neurological Medical History: Reports: Hx Migraine Renal/ Medical History: Denies: Hx Peritoneal Dialysis Malignancy Medical History: Reports: None Other: Cholecystitis Musculoskeletal Medical History: Reports None Skin Medical History: Reports None Psychiatric Medical History: Reports: None Traumatic Medical History: Reports: None Infectious Medical History: Reports: None Past Surgical History: Reports: Hx Cholecystectomy, Hx Tonsillectomy - Immunizations Immunizations up to date: Yes Hx Diphtheria, Pertussis, Tetanus Vaccination: Yes Review of Systems - Review of Systems Notes: Constitutional: Negative for fever. HENT: Negative for sore throat. Eyes: Negative for visual changes. Cardiovascular: Negative for chest pain. Respiratory: Negative for shortness of breath. Gastrointestinal: Positive abdominal pain. Positive nausea. Negative vomiting. Genitourinary: Negative for dysuria. Musculoskeletal: Negative for back pain. Skin: Negative for rash. Neurological: Negative for headaches, weakness or numbness. 10 point ROS negative except as marked above and in HPI. Physical Exam - Vital signs Vitals: Temp Pulse Resp BP Pulse Ox 98.0 F 91 22 H 137/83 H 97 06/30/20 16:07 06/30/20 16:07 06/30/20 16:07 06/30/20 16:07 06/30/20 16:07 - Notes Notes: CONSTITUTIONAL: Well appearing. No acute distress. SKIN: Warm, dry, and intact without rash EYES: Extraocular movements are grossly intact, clear conjunctiva HENT: Normocephalic, atraumatic, moist mucus membranes NECK: No obvious swelling, normal range of motion PULMONARY: Normal chest rise and fall. Breath sounds clear and equal bila terally. No respiratory distress or stridor CARDIOVASCULAR: Regular rate. No murmurs, rubs, gallops. Distal extremities are warm and well perfused. ABDOMINAL: The abdomen is soft. There is mild tenderness palpation in the right upper quadrant and along the right flank. No CVA tenderness noted. NEUROLOGIC: Normal speech, moves all extremities. Cranial nerves are within normal limits. Composition [employer] strength strong and equal in the upper extremities bilaterally. There is good strength and sensation in bilateral lower extremities. There is no arm or leg drift noted. MUSCULOSKELETAL: No gross deformities, atraumatic PSYCHIATRIC: Normal mood and affect Course - Re-evaluation Re-evalutation: 06/30/20 23:05 Rechecked patient who has responded well to treatment in the ER. Discussed with patient: results, diagnosis, treatment plan, and need for follow-up. Return to the emergency department warnings were given. All questions and concerns were addressed. The plan is agreed with and understood. Patient is stable and ready for discharge. - Vital Signs Vital signs: Temp Pulse Resp BP Pulse Ox 98.2 F 91 18 151/98 H 98 06/30/20 19:00 06/30/20 16:07 06/30/20 19:00 06/30/20 20:01 06/30/20 22:00 - Laboratory Result Diagrams: 06/30/20 17:31 06/30/20 17:31 Laboratory results interpreted by me: 06/30/20 06/30/20 06/30/20 17:31 17:31 17:31 WBC 12.0 H Carbon Dioxide 32 H Ur Leukocyte Esterase TRACE H Discharge - Discharge Clinical Impression: Right upper quadrant abdominal pain, Nausea Condition: Stable Disposition: HOME, SELF-CARE Instructions: Abdominal Pain ([facility]) Prescriptions: Promethazine HCl [Phenergan 25 mg Tablet] 25 mg PO Q8HP PRN #12 tablet PRN Reason: For Nausea/Vomiting
[2020-06-30 23:19] VITALS: BP 115/75
== END 2020-06-30 23:20 | disposition home or self-care (01) ==
LOC: ER 15:49 → EEVIPCON 15:49 → ER 23:20
DX: R10.11 Right upper quadrant pain (principal); R11.0 Nausea; R10.811 Right upper quadrant abdominal tenderness; R10.819 Abdominal tenderness, unspecified site; F17.200 Nicotine dependence, unspecified, uncomplicated; I10 Essential (primary) hypertension; Z90.49 Acquired absence of other specified parts of digestive tract; Z88.0 Allergy status to penicillin
CPT/HCPCS: 99285; 96361; 96374; 96375; 36415; 87086; 85025; 81025; 80053; 81001; 74176; J1885; J2405; J7030